=== PATIENT | male | born 1995 | race Caucasian/White ===

== ENCOUNTER 2018-12-28 02:38 | Emergency (ER) | payer SELFPAY ==
[~2018-12-28] VITALS: Ht 180.3 cm; Wt 65.8 kg
[~2018-12-28 02:38] MED LIST: ADOXA50 MG PO; HYDROCODONE BIT1 T11 PO; MOTRIN800 MG PO; PREDNISONE20 MG PO; TYLENOL W/CODEI1 TA2 PO
[2018-12-28] MEDS ORDERED: KEFLEX500 M1 PO (03:36)
== END 2018-12-28 03:56 | disposition home or self-care (01) ==
LOC: ED 02:38
DX: S02.2XXA Fracture of nasal bones, initial encounter for closed fracture (principal); S01.21XA Laceration without foreign body of nose, initial encounter; Z88.1 Allergy status to other antibiotic agents; Z88.0 Allergy status to penicillin; Y04.0XXA Assault by unarmed brawl or fight, initial encounter; Y93.89 Activity, other specified; Y92.89 Other specified places as the place of occurrence of the external cause; Y99.9 Unspecified external cause status

== ENCOUNTER 2021-06-05 00:06 | Emergency (ER) | payer SELFPAY ==
[~2021-06-05] VITALS: Ht 172.7 cm; Wt 61.2 kg
[~2021-06-05 00:06] MED LIST changes: +KEFLEX500 M1 PO
[2021-06-05] MEDS ORDERED: CEPHALEXIN500 M1 PO (03:13)
== END 2021-06-05 04:00 | disposition home or self-care (01) ==
LOC: ED 00:06
DX: S01.01XA Laceration without foreign body of scalp, initial encounter (principal); Z88.0 Allergy status to penicillin; Z88.1 Allergy status to other antibiotic agents; W22.8XXA Striking against or struck by other objects, initial encounter; Y93.89 Activity, other specified; Y92.89 Other specified places as the place of occurrence of the external cause; Y99.8 Other external cause status